=== PATIENT | female | born 2000 | race Caucasian/White ===

== ENCOUNTER 2022-04-25 03:16 | Outpatient (CLI) | payer OTHER ==
[~2022-04-25] VITALS: Ht 180.3 cm; Wt 166.8 kg
[2022-04-25] MEDS ORDERED: PRENTAB9 PO (03:29)
[2022-04-25] MEDS ORDERED: ECOT81TA5 PO (03:30)
[2022-04-25 03:47] VITALS: BP 126/55
[2022-04-25 04:18] LABS: APPEARANCE, URINE MANUAL CLEAR (CLEAR); COLOR, URINE MANUAL YELLOW (YELLOW)
[2022-04-25 04:19] LABS: BILIRUBIN, URINE MANUAL NEGATIVE (NEGATIVE); BLOOD URINE MANUAL NEGATIVE (NEGATIVE); GLUCOSE, URINE (UA) MANUAL NEGATIVE (NEGATIVE); KETONE, URINE MANUAL NEGATIVE (NEGATIVE); LEUKOCYTE ESTERASE, URINE MAN NEGATIVE (NEGATIVE); NITRITE, URINE MANUAL NEGATIVE (NEGATIVE); PROTEIN, URINE MANUAL NEGATIVE (NEGATIVE); UROBILINOGEN, URINE MANUAL NORMAL (NORMAL)
== END 2022-04-25 06:36 | disposition home or self-care (01) ==
LOC: M LDO 03:16
PROVIDERS: ATTEND Obstetrics & Gynecology
DX: O26.893 Other specified pregnancy related conditions, third trimester (principal); M54.9 Dorsalgia, unspecified; Z3A.28 28 weeks gestation of pregnancy; O99.213 Obesity complicating pregnancy, third trimester
CPT/HCPCS: 59025; 76815; 76819; 76820; 81002; G0378; G0463

== ENCOUNTER 2022-07-12 10:17 | Outpatient (CLI) | payer OTHER ==
[2022-07-12] VITALS (7 sets, daily range): BP systolic 132–183; BP diastolic 84–92
[~2022-07-12] VITALS: Ht 177.8 cm; Wt 170.5 kg
[~2022-07-12 10:17] MED LIST: ECOT81TA5 PO; PRENTAB9 PO
[2022-07-12] MEDS ORDERED: HOME MED LIST COMPLETE! XX SCH (10:45)
[2022-07-12] MEDS ORDERED: ACET-897 PO (10:45)
[2022-07-12 11:56] LABS: BASO % 0.1 % (0.0-1.0); EOS # 0.1 10^3/uL (0.0-0.5); EOS % 0.7 % (0.0-3.0); HEMATOCRIT 33.8 % (36.0-47.0); HEMOGLOBIN 11.2 g/dl (12.0-15.5); LYMPH # 1.5 10^3/uL (1.5-5.0); LYMPH % 19.8 % (24.0-44.0); MEAN CORPUSCULAR HEMOGLOBIN 28.5 pg (27.0-33.0); MEAN CORPUSCULAR HGB CONC 33.1 g/dl (32.0-36.5); MONO # 0.6 10^3/uL (0.0-0.8); MONO % 7.9 % (2.0-8.0); NEUTROPHILS # 5.2 10^3/uL (1.5-8.5); NEUTROPHILS % 71.1 % (36.0-66.0); PLATELET COUNT, AUTOMATED 260 10^3/uL (150-450); RED BLOOD COUNT 3.93 10^6/uL (4.00-5.40); WHITE BLOOD COUNT 7.3 10^3/uL (4.0-10.0)
[2022-07-12 11:57] LABS: TOTAL PROTEIN,RANDOM URINE 42.9 MG/DL (0.0-14.0)
[2022-07-12 12:11] LABS: URIC ACID 6.3 MG/DL (3.1-7.8)
[2022-07-12 12:13] LABS: LDH LACTATE DEHYDROGENASE 202 U/L (120-246)
[2022-07-12 12:14] LABS: ALT/SGPT 15 U/L (7.0-40); AST/SGOT 15 U/L (<34); BILIRUBIN,TOTAL 0.6 MG/DL (0.3-1.2); CREATININE FOR GFR 0.52 MG/DL (0.55-1.30); GLOMERULAR FILTRATION RATE > 60.0 (>60)
[2022-07-12 12:25] LABS: CREATININE,RANDOM URINE 386.4 MG/DL
== END 2022-07-12 13:45 | disposition home or self-care (01) ==
LOC: M LDO 10:17
PROVIDERS: ATTEND Advanced Practice Midwife
DX: O26.893 Other specified pregnancy related conditions, third trimester (principal); R03.0 Elevated blood-pressure reading, without diagnosis of hypertension; Z3A.39 39 weeks gestation of pregnancy
CPT/HCPCS: 36415; 59025; 82247; 82565; 82570; 83615; 84156; 84450; 84460; 84550; 85025; G0378; G0463

== ENCOUNTER 2022-07-13 10:22 | Inpatient (IN) | payer OTHER ==
[2022-07-13] VITALS (8 sets, daily range): BP systolic 135–173; BP diastolic 68–90
[~2022-07-13] VITALS: Ht 180.3 cm; Wt 171.1 kg
[~2022-07-13 10:22] MED LIST changes: +ACET-897 PO
[2022-07-13] MEDS ORDERED: HOME MED LIST COMPLETE! XX SCH (11:05)
[2022-07-13] MEDS ORDERED: LACTATED RINGER'S 1000 ML IV STA (11:07)
[2022-07-13] MEDS ORDERED: PENICILLIN G POTASSIUM 5 MU IV 5 MU in D5W MINI-BAG PLUS 100 ML IV STA (11:07)
[2022-07-13] MEDS ORDERED: OXYTOCIN DRIP 30 UNITS in IV 1 EA IV PRN ×4 (11:10)
[2022-07-13] MEDS ORDERED: TRANEXAMIC ACID INJection 1,000 MG in NS 100 ML IV PRN (11:10)
[2022-07-13] MEDS ORDERED: LIDOCAINE 1% MDV 20ML VIAL INFIL PRN (11:10)
[2022-07-13] MEDS ORDERED: CARBOPROST TROMETHAMINE 250 MCG/ML AMP IM PRN (11:10)
[2022-07-13 12:58] LABS: HEMATOCRIT 33.1 % (36.0-47.0); MEAN CORPUSCULAR HEMOGLOBIN 28.6 pg (27.0-33.0); MEAN CORPUSCULAR HGB CONC 33.2 g/dl (32.0-36.5); MEAN CORPUSCULAR VOLUME 86.2 fl (80.0-96.0); PLATELET COUNT, AUTOMATED 246 10^3/uL (150-450); RED BLOOD COUNT 3.84 10^6/uL (4.00-5.40); WHITE BLOOD COUNT 9.4 10^3/uL (4.0-10.0)
[2022-07-13] MEDS ORDERED: OXYTOCIN DRIP 30 UNITS in IV 1 EA IV SCH (13:10)
[2022-07-13 13:11] LABS: URIC ACID 6.7 MG/DL (3.1-7.8)
[2022-07-13 13:12] LABS: TOTAL PROTEIN,RANDOM URINE 33.9 MG/DL (0.0-14.0)
[2022-07-13 13:14] LABS: ALT/SGPT 15 U/L (7.0-40); AST/SGOT 13 U/L (<34); BILIRUBIN,TOTAL 0.6 MG/DL (0.3-1.2); CREATININE FOR GFR 0.53 MG/DL (0.55-1.30); GLOMERULAR FILTRATION RATE > 60.0 (>60)
[2022-07-13 13:17] LABS: LDH LACTATE DEHYDROGENASE 194 U/L (120-246)
[2022-07-13 13:40] LABS: CREATININE,RANDOM URINE 347.8 MG/DL
[2022-07-13] MEDS: LR 1,000 ML IV SCH (14:36)
[2022-07-13] MEDS ORDERED: PEN G POT 3,000,000 UNIT/50 ML 3,000,000 UNIT in IV 1 EA IV SCH (18:00)
[2022-07-13] MEDS: FAMOTIDINE 20 MG TAB PO SCH (19:11)
[2022-07-13 19:59] LABS: HEMATOCRIT 32.8 % (36.0-47.0); HEMOGLOBIN 10.9 g/dl (12.0-15.5); MEAN CORPUSCULAR HEMOGLOBIN 28.6 pg (27.0-33.0); MEAN CORPUSCULAR HGB CONC 33.2 g/dl (32.0-36.5); MEAN CORPUSCULAR VOLUME 86.1 fl (80.0-96.0); PLATELET COUNT, AUTOMATED 241 10^3/uL (150-450); RED BLOOD COUNT 3.81 10^6/uL (4.00-5.40); WHITE BLOOD COUNT 9.7 10^3/uL (4.0-10.0)
[2022-07-13] MEDS ORDERED: **PENDING PCN ENTRY XX SCH (21:00)
[2022-07-13] MEDS ORDERED: LABETALOL 100MG/20ML VIAL IV STA (21:45)
[2022-07-14] VITALS (14 sets, daily range): BP systolic 119–185; BP diastolic 60–102
[2022-07-14] MEDS: LR 1,000 ML IV SCH ×3 (00:04→11:10)
[2022-07-14] MEDS: PEN G POT 3,000,000 UNIT/50 ML 3,000,000 UNIT in IV 1 EA IV SCH ×4 (00:04→12:00)
[2022-07-14] MEDS ORDERED: NALOXONE INJ 0.4MG/1ML VIAL IV PRN (01:30)
[2022-07-14] MEDS ORDERED: diphenhydrAMINE 50MG/ML VIAL IV PRN (01:30)
[2022-07-14] MEDS ORDERED: EPIDURAL/PCA KEYS XX PRN (01:30)
[2022-07-14] MEDS ORDERED: ePHEDrine SULFATE 25 MG/5 ML(5MG/ML) SYRINGE IVP PRN (01:30)
[2022-07-14] MEDS ORDERED: LR 500 ML IV PRN (01:30)
[2022-07-14] MEDS ORDERED: ONDANSETRON 4MG 2ML VIAL IV PRN (01:30)
[2022-07-14] MEDS: FENTANYL/ROPIVACAINE/NACL BAG 100 ML EPIDURAL SCH ×2 (02:05→11:30)
[2022-07-14] MEDS: FAMOTIDINE 20 MG TAB PO SCH ×2 (08:05→21:17)
[2022-07-14] MEDS: PRENATAL VITAMINS CHEWABLE TABLET PO SCH (09:00)
[2022-07-14] MEDS ORDERED: IBUPROFEN 800 MG TAB PO PRN (11:10)
[2022-07-14] MEDS ORDERED: DIBUCAINE 1% OINTMENT 30GM TOP PRN (11:10)
[2022-07-14] MEDS ORDERED: DOCUSATE SODIUM 100MG CAPSULE PO PRN (11:10)
[2022-07-14] MEDS ORDERED: RHOGAM 300 MCG (1500 IU) INJ (J2790) IM SCH (11:10)
[2022-07-14] MEDS: ACETAMINOPHEN TAB 650MG DOSE (2X325MG) PO PRN (21:17)
[2022-07-15 06:00] VITALS: BP 139/95
[2022-07-15] MEDS: FAMOTIDINE 20 MG TAB PO SCH ×2 (08:25→20:04)
[2022-07-15] MEDS: PRENATAL VITAMINS CHEWABLE TABLET PO SCH (08:25)
[2022-07-15] MEDS: ACETAMINOPHEN TAB 650MG DOSE (2X325MG) PO PRN ×2 (08:26→20:04)
[2022-07-16] MEDS: ACETAMINOPHEN TAB 650MG DOSE (2X325MG) PO PRN ×2 (01:54→09:09)
[2022-07-16 06:00] VITALS: BP 135/82
[2022-07-16] MEDS ORDERED: MEASLES,MUMPS,RUBELLA VACCINE INJ (MMR-II) (90707) SC.IMMUN ONE (09:00)
[2022-07-16] MEDS: PRENATAL VITAMINS CHEWABLE TABLET PO SCH (09:08)
[2022-07-16] MEDS: FAMOTIDINE 20 MG TAB PO SCH (09:08)
[2022-07-16] MEDS ORDERED: ACET1TAB55 PO (11:03)
[2022-07-16] MEDS ORDERED: IBUP80TA PO (11:03)
[2022-07-16] MEDS ORDERED: COLA100C5 PO (11:03)
== END 2022-07-16 20:44 | disposition home or self-care (01) | DRG 806 ==
LOC: M LDI 10:22 → M OBS 07-14 13:00
PROVIDERS: ADMIT Advanced Practice Midwife; ATTEND Internal Medicine
PROC: 3E033VJ Introduction of Other Hormone into Peripheral Vein, Percutaneous Approach (ICD-10-PCS; 2022-07-13)
PROC: 10E0XZZ Delivery of Products of Conception, External Approach (ICD-10-PCS; principal; 2022-07-14)
PROC: 0KQM0ZZ Repair Perineum Muscle, Open Approach (ICD-10-PCS; 2022-07-14)
DX: O13.4 Gestational [pregnancy-induced] hypertension without significant proteinuria, complicating childbirth (principal); Z37.0 Single live birth; Z68.43 Body mass index [BMI] 50.0-59.9, adult; Z3A.39 39 weeks gestation of pregnancy; O99.824 Streptococcus B carrier state complicating childbirth; O99.214 Obesity complicating childbirth; E66.9 Obesity, unspecified; O76 Abnormality in fetal heart rate and rhythm complicating labor and delivery; O70.1 Second degree perineal laceration during delivery

== ENCOUNTER 2023-06-18 17:01 | Observation (INO) | payer OTHER ==
[~2023-06-18] VITALS: Ht 180.3 cm; Wt 172.9 kg
[~2023-06-18 17:01] MED LIST changes: +ACET1TAB55 PO; +COLA100C5 PO; +IBUP80TA PO
[2023-06-18 17:43] LABS: BASO % 0.1 % (0.0-1.0); EOS % 0.3 % (0.0-3.0); HEMATOCRIT 39.4 % (36.0-47.0); HEMOGLOBIN 13.3 g/dl (12.0-15.5); LYMPH # 1.2 10^3/uL (1.5-5.0); LYMPH % 15.9 % (24.0-44.0); MEAN CORPUSCULAR HEMOGLOBIN 28.8 pg (27.0-33.0); MEAN CORPUSCULAR HGB CONC 33.8 g/dl (32.0-36.5); MEAN CORPUSCULAR VOLUME 85.3 fl (80.0-96.0); MONO # 0.5 10^3/uL (0.0-0.8); MONO % 6.2 % (2.0-8.0); NEUTROPHILS # 5.7 10^3/uL (1.5-8.5); NEUTROPHILS % 77.2 % (36.0-66.0); PLATELET COUNT, AUTOMATED 325 10^3/uL (150-450); RED BLOOD COUNT 4.62 10^6/uL (4.00-5.40); WHITE BLOOD COUNT 7.3 10^3/uL (4.0-10.0)
[2023-06-18 17:56] LABS: LIPASE 28 U/L (12-53)
[2023-06-18 17:57] LABS: AMYLASE 24 U/L (30-118)
[2023-06-18 17:58] LABS: ALBUMIN 3.9 G/DL (3.2-5.2); ALKALINE PHOSPHATASE 113 U/L (46-116); ALT/SGPT 269 U/L (7.0-40); AST/SGOT 393 U/L (<34); BILIRUBIN,DIRECT 0.8 MG/DL (<0.4); BILIRUBIN,TOTAL 1.5 MG/DL (0.3-1.2); BLOOD UREA NITROGEN 16 MG/DL (9-23); CALCIUM LEVEL 9.3 MG/DL (8.5-10.1); CARBON DIOXIDE LEVEL 26 MMOL/L (20-31); CHLORIDE LEVEL 101 MMOL/L (98-107); CK-MB VALUE MASS < 1.0 NG/ML (<3.6); CPK CREATINE PHOSPHOKINASE 72 U/L (34-145); CREATININE FOR GFR 0.63 MG/DL (0.55-1.30); GLOMERULAR FILTRATION RATE > 60.0 (>60); GLUCOSE, FASTING 105 MG/DL (60-100); MB/CK RELATIVE INDEX 1.38 (< OR =4); SODIUM LEVEL 137 MMOL/L (136-145)
[2023-06-18 18:05] LABS: HCG, SERUM QUALITATIVE NEGATIVE (NEGATIVE)
[2023-06-18] MEDS ORDERED: ONDANSETRON 4MG 2ML VIAL IV ONE (19:55)
[2023-06-18] MEDS ORDERED: KETOROLAC 30 MG/ML 1ML VIAL IV ONE (19:55)
[2023-06-18] MEDS ORDERED: NS 1,000 ML IV ONE (19:55)
[2023-06-18] MEDS ORDERED: ISOVUE-370 76% 100ML VIAL As Ordered ONE (21:53)
[2023-06-19] MEDS ORDERED: MORPHINE 2 MG/ML 1ML VIAL IV PRN (00:45)
[2023-06-19] MEDS ORDERED: ONDANSETRON 4MG 2ML VIAL IV PRN (00:45)
[2023-06-19] MEDS ORDERED: LR 1,000 ML IV SCH (00:45)
[2023-06-19] MEDS ORDERED: MORPHINE 4 MG/ML 1ML VIAL IV PRN (00:45)
[2023-06-19 00:48] LABS: RSV AMPLIFICATION NEGATIVE (NEGATIVE)
[2023-06-19 02:02] VITALS: BP 125/75; TEMP 96.8; O2SAT 96
[2023-06-19 06:17] VITALS: BP 120/77; TEMP 97; O2SAT 99
[2023-06-19 06:57] LABS: ALBUMIN 3.5 G/DL (3.2-5.2); ALKALINE PHOSPHATASE 115 U/L (46-116); ALT/SGPT 506 U/L (7.0-40); AST/SGOT 440 U/L (<34); BILIRUBIN,TOTAL 1.7 MG/DL (0.3-1.2); BLOOD UREA NITROGEN 13 MG/DL (9-23); CALCIUM LEVEL 8.7 MG/DL (8.5-10.1); CARBON DIOXIDE LEVEL 26 MMOL/L (20-31); CHLORIDE LEVEL 103 MMOL/L (98-107); CREATININE FOR GFR 0.61 MG/DL (0.55-1.30); GLOMERULAR FILTRATION RATE > 60.0 (>60); GLUCOSE, FASTING 86 MG/DL (60-100); POTASSIUM SERUM 3.7 MMOL/L (3.5-5.1); SODIUM LEVEL 138 MMOL/L (136-145); TOTAL PROTEIN 6.3 G/DL (5.7-8.2)
== END 2023-06-19 14:05 | disposition home or self-care (01) ==
LOC: M ED 17:01 → M ED INP 17:02 → M MS5PR 06-19 02:12
PROVIDERS: ADMIT Internal Medicine; ATTEND Internal Medicine Nephrology
DX: K80.50 Calculus of bile duct without cholangitis or cholecystitis without obstruction (principal); F17.200 Nicotine dependence, unspecified, uncomplicated
CPT/HCPCS: 36415; 74021; 74177; 74181; 76705; 80048; 80053; 80076; 82150; 82550; 82553; 83605; 83690; 84484; 84703; 85025; 87631; 96361; 96374; 96375; 99284; J1885; J2405; Q9967

== ENCOUNTER 2023-06-19 23:24 | Inpatient (IN) | payer OTHER ==
[~2023-06-19] VITALS: Ht 175.3 cm; Wt 165.5 kg
[2023-06-20] MEDS ORDERED: KETOROLAC 30 MG/ML 1ML VIAL IV ONE (00:50)
[2023-06-20] MEDS ORDERED: ONDANSETRON 4MG 2ML VIAL IV ONE (00:50)
[2023-06-20] MEDS ORDERED: NS 1,000 ML IV ONE (00:50)
[2023-06-20 01:27] LABS: BASO % 0.3 % (0.0-1.0); EOS # 0.1 10^3/uL (0.0-0.5); EOS % 0.8 % (0.0-3.0); HEMATOCRIT 36.9 % (36.0-47.0); HEMOGLOBIN 12.5 g/dl (12.0-15.5); LYMPH # 1.5 10^3/uL (1.5-5.0); LYMPH % 20.2 % (24.0-44.0); MEAN CORPUSCULAR HEMOGLOBIN 29.5 pg (27.0-33.0); MEAN CORPUSCULAR HGB CONC 33.9 g/dl (32.0-36.5); MONO # 0.5 10^3/uL (0.0-0.8); MONO % 6.6 % (2.0-8.0); NEUTROPHILS # 5.3 10^3/uL (1.5-8.5); PLATELET COUNT, AUTOMATED 302 10^3/uL (150-450); RED BLOOD COUNT 4.24 10^6/uL (4.00-5.40); WHITE BLOOD COUNT 7.4 10^3/uL (4.0-10.0)
[2023-06-20 01:37] LABS: LIPASE 23 U/L (12-53)
[2023-06-20 01:40] LABS: HCG, SERUM QUALITATIVE NEGATIVE (NEGATIVE)
[2023-06-20 01:42] LABS: ALBUMIN 3.7 G/DL (3.2-5.2); ALKALINE PHOSPHATASE 132 U/L (46-116); ALT/SGPT 460 U/L (7.0-40); AST/SGOT 263 U/L (<34); BILIRUBIN,DIRECT 1.9 MG/DL (<0.4); BILIRUBIN,TOTAL 2.9 MG/DL (0.3-1.2); BLOOD UREA NITROGEN 11 MG/DL (9-23); CALCIUM LEVEL 8.8 MG/DL (8.5-10.1); CARBON DIOXIDE LEVEL 28 MMOL/L (20-31); CHLORIDE LEVEL 105 MMOL/L (98-107); CREATININE FOR GFR 0.71 MG/DL (0.55-1.30); GLOMERULAR FILTRATION RATE > 60.0 (>60); GLUCOSE, FASTING 89 MG/DL (60-100); POTASSIUM SERUM 3.6 MMOL/L (3.5-5.1); SODIUM LEVEL 141 MMOL/L (136-145); TOTAL PROTEIN 6.7 G/DL (5.7-8.2)
[2023-06-20 02:39] LABS: RSV AMPLIFICATION NEGATIVE (NEGATIVE)
[2023-06-20 09:40] LABS: BASO % 0.2 % (0.0-1.0); EOS # 0.1 10^3/uL (0.0-0.5); EOS % 1.8 % (0.0-3.0); HEMATOCRIT 37.6 % (36.0-47.0); HEMOGLOBIN 12.7 g/dl (12.0-15.5); LYMPH # 1.3 10^3/uL (1.5-5.0); LYMPH % 29.4 % (24.0-44.0); MEAN CORPUSCULAR HEMOGLOBIN 28.7 pg (27.0-33.0); MEAN CORPUSCULAR HGB CONC 33.8 g/dl (32.0-36.5); MEAN CORPUSCULAR VOLUME 85.1 fl (80.0-96.0); MONO # 0.4 10^3/uL (0.0-0.8); NEUTROPHILS # 2.7 10^3/uL (1.5-8.5); NEUTROPHILS % 59.4 % (36.0-66.0); PLATELET COUNT, AUTOMATED 287 10^3/uL (150-450); RED BLOOD COUNT 4.42 10^6/uL (4.00-5.40); WHITE BLOOD COUNT 4.5 10^3/uL (4.0-10.0)
[2023-06-20 10:05] LABS: ALBUMIN 3.7 G/DL (3.2-5.2); BILIRUBIN,DIRECT 0.7 MG/DL (<0.4); BILIRUBIN,TOTAL 1.6 MG/DL (0.3-1.2); TOTAL PROTEIN 6.9 G/DL (5.7-8.2)
[2023-06-20] MEDS ORDERED: MED REC IN PROGRESS XX SCH (13:20)
[2023-06-20] MEDS ORDERED: HOME MED LIST COMPLETE! XX SCH (14:10)
[2023-06-20] MEDS ORDERED: MOM 30ML SUSPENSION UDC PO PRN (14:30)
[2023-06-20] MEDS ORDERED: ACETAMINOPHEN TAB 650MG DOSE (2X325MG) PO PRN (14:30)
[2023-06-20] MEDS ORDERED: KETOROLAC 30 MG/ML 1ML VIAL IV PRN (14:45)
[2023-06-20 16:25] LABS: INR 1.1; PROTHROMBIN TIME 13.9 SECONDS (12.5-14.5)
[2023-06-20 17:10] VITALS: BP 146/76; TEMP 97.7; O2SAT 98
[2023-06-20] MEDS: HYDROMORPHONE HCL 0.5 MG/ 0.5 ML SYRINGE IV PRN (19:26)
[2023-06-20] MEDS: DOCUSATE SODIUM 100MG CAPSULE PO SCH (19:26)
[2023-06-20 22:00] VITALS: BP 135/70; TEMP 97.7; O2SAT 100
[2023-06-20] MEDS ORDERED: ONDANSETRON 4MG 2ML VIAL IV PRN (22:35)
[2023-06-20] MEDS: LR 1,000 ML IV SCH (22:42)
[2023-06-20] MEDS: KETOROLAC 30 MG/ML 1ML VIAL IV PRN (23:56)
[2023-06-21] VITALS (8 sets, daily range): BP systolic 121–152; BP diastolic 62–97; TEMP 97.2–97.5; O2SAT 95–99
[2023-06-21] MEDS: HYDROMORPHONE HCL 0.5 MG/ 0.5 ML SYRINGE IV PRN ×6 (00:36→23:14)
[2023-06-21 05:38] LABS: HEMATOCRIT 34.4 % (36.0-47.0); HEMOGLOBIN 11.7 g/dl (12.0-15.5); MEAN CORPUSCULAR HEMOGLOBIN 29.1 pg (27.0-33.0); MEAN CORPUSCULAR VOLUME 85.6 fl (80.0-96.0); PLATELET COUNT, AUTOMATED 257 10^3/uL (150-450); RED BLOOD COUNT 4.02 10^6/uL (4.00-5.40)
[2023-06-21 06:24] LABS: ALBUMIN 3.3 G/DL (3.2-5.2); ALKALINE PHOSPHATASE 142 U/L (46-116); ALT/SGPT 454 U/L (7.0-40); AST/SGOT 309 U/L (<34); BILIRUBIN,TOTAL 2.5 MG/DL (0.3-1.2); BLOOD UREA NITROGEN 10 MG/DL (9-23); CALCIUM LEVEL 8.6 MG/DL (8.5-10.1); CARBON DIOXIDE LEVEL 26 MMOL/L (20-31); CHLORIDE LEVEL 106 MMOL/L (98-107); CREATININE FOR GFR 0.65 MG/DL (0.55-1.30); GLOMERULAR FILTRATION RATE > 60.0 (>60); GLUCOSE, FASTING 91 MG/DL (60-100); POTASSIUM SERUM 3.8 MMOL/L (3.5-5.1); SODIUM LEVEL 140 MMOL/L (136-145); TOTAL PROTEIN 6.1 G/DL (5.7-8.2)
[2023-06-21] MEDS: DOCUSATE SODIUM 100MG CAPSULE PO SCH ×2 (07:55→21:56)
[2023-06-21] MEDS ORDERED: ENOXAPARIN 40MG/0.4ML SYRINGE (J1650 PER 10MG) SC ONE (09:00)
[2023-06-21] MEDS: LR 1,000 ML IV SCH ×3 (11:00→19:46)
[2023-06-21] MEDS ORDERED: SODIUM CHLORIDE 0.9% INJ 10 ML SYR IV ONE (13:25)
[2023-06-21] MEDS ORDERED: ceFAZolin SOD 3 GM in IV 1 EA IV ONE (13:25)
[2023-06-21] MEDS ORDERED: INDOCYANINE GREEN 25MG VIAL (IC-GREEN) IV ONE (13:25)
[2023-06-21] MEDS ORDERED: INDOCYANINE GREEN 25MG VIAL (IC-GREEN) As Ordered ONE (13:56)
[2023-06-21] MEDS ORDERED: fentaNYL 250 MCG/5 ML INJECTION As Ordered ONE (13:59)
[2023-06-21] MEDS ORDERED: propofoL 200 MG/20 ML VIAL As Ordered ONE (13:59)
[2023-06-21] MEDS ORDERED: ROCURONIUM BROMIDE 50MG/5ML VIAL As Ordered ONE (13:59)
[2023-06-21] MEDS ORDERED: ceFAZolin SOD 1 GM in D5W MINI-BAG PLUS 50 ML IV ONE (14:00)
[2023-06-21] MEDS ORDERED: ceFAZolin SOD 2 GM in IV 1 EA IV ONE (14:00)
[2023-06-21] MEDS ORDERED: LIDOCAINE 2% 100MG/5ML SDV (FOR ANES.) As Ordered ONE (14:04)
[2023-06-21] MEDS ORDERED: MIDAZOLAM INJ 2MG/2ML VIAL As Ordered ONE (14:06)
[2023-06-21] MEDS ORDERED: ONDANSETRON 4MG 2ML VIAL As Ordered ONE (14:11)
[2023-06-21] MEDS ORDERED: KETOROLAC 60MG 2ML VIAL As Ordered ONE (14:12)
[2023-06-21] MEDS ORDERED: ceFAZolin 1GM VIAL As Ordered ONE (15:07)
[2023-06-21] MEDS ORDERED: ACETAMINOPHEN 1000MG 100ML IV BAG As Ordered ONE (15:24)
[2023-06-21] MEDS ORDERED: SUGAMMADEX SODIUM 500 MG/5 ML VIAL (BRIDION) As Ordered ONE (16:06)
[2023-06-21] MEDS ORDERED: oxyCODONE 5MG TAB PO PRN (16:35)
[2023-06-21] MEDS ORDERED: LR 1,000 ML IV SCH (16:35)
[2023-06-21] MEDS ORDERED: ONDANSETRON 4MG 2ML VIAL IV PRN (16:35)
[2023-06-21] MEDS ORDERED: fentaNYL 100 MCG/2 ML INJECTION IV PRN (16:35)
[2023-06-21] MEDS ORDERED: METOCLOPRAMIDE INJ 10MG/2ML VIAL IV STA (16:36)
[2023-06-21] MEDS ORDERED: dexmedeTOMIDine (4MCG/ML)200MCG/50ML BTL (PRECEDEX) As Ordered ONE (16:39)
[2023-06-21] MEDS ORDERED: SCOPOLAMINE 1MG TRANSDERMAL PATCH TOP SCH (21:00)
[2023-06-21] MEDS: KETOROLAC 30 MG/ML 1ML VIAL IV PRN (21:56)
[2023-06-22 02:04] VITALS: BP 142/78; TEMP 97.3; O2SAT 98
[2023-06-22] MEDS: KETOROLAC 30 MG/ML 1ML VIAL IV PRN (04:37)
[2023-06-22 05:05] VITALS: BP 144/78; TEMP 97.5; O2SAT 97
[2023-06-22 06:03] LABS: HEMATOCRIT 35.5 % (36.0-47.0); HEMOGLOBIN 11.8 g/dl (12.0-15.5); MEAN CORPUSCULAR HEMOGLOBIN 28.7 pg (27.0-33.0); MEAN CORPUSCULAR HGB CONC 33.2 g/dl (32.0-36.5); MEAN CORPUSCULAR VOLUME 86.4 fl (80.0-96.0); PLATELET COUNT, AUTOMATED 274 10^3/uL (150-450); RED BLOOD COUNT 4.11 10^6/uL (4.00-5.40); WHITE BLOOD COUNT 6.4 10^3/uL (4.0-10.0)
[2023-06-22 06:22] LABS: ALBUMIN 3.4 G/DL (3.2-5.2); ALKALINE PHOSPHATASE 154 U/L (46-116); ALT/SGPT 489 U/L (7.0-40); AST/SGOT 263 U/L (<34); BILIRUBIN,DIRECT 1.6 MG/DL (<0.4); BILIRUBIN,TOTAL 2.2 MG/DL (0.3-1.2); BLOOD UREA NITROGEN 8 MG/DL (9-23); CALCIUM LEVEL 8.7 MG/DL (8.5-10.1); CARBON DIOXIDE LEVEL 26 MMOL/L (20-31); CHLORIDE LEVEL 105 MMOL/L (98-107); CREATININE FOR GFR 0.62 MG/DL (0.55-1.30); GLOMERULAR FILTRATION RATE > 60.0 (>60); GLUCOSE, FASTING 90 MG/DL (60-100); POTASSIUM SERUM 3.9 MMOL/L (3.5-5.1); SODIUM LEVEL 141 MMOL/L (136-145); TOTAL PROTEIN 6.2 G/DL (5.7-8.2)
[2023-06-22] MEDS: DOCUSATE SODIUM 100MG CAPSULE PO SCH ×2 (07:57→19:24)
[2023-06-22] MEDS: HYDROMORPHONE HCL 0.5 MG/ 0.5 ML SYRINGE IV PRN ×4 (07:58→21:33)
[2023-06-22] MEDS: ENOXAPARIN 60MG/0.6ML SYRINGE (J1650 PER 10MG) SC SCH ×2 (07:58→19:23)
[2023-06-22 08:43] LABS: HEPATITIS C VIRUS ABY INDEX 0.04 INDEX (<0.8)
[2023-06-22 08:44] LABS: HEPATITIS B CORE ANTIBODY IGM NEGATIVE (NEGATIVE)
[2023-06-22 13:37] LABS: ALBUMIN 3.7 G/DL (3.2-5.2); ALKALINE PHOSPHATASE 170 U/L (46-116); ALT/SGPT 525 U/L (7.0-40); AST/SGOT 287 U/L (<34); BILIRUBIN,TOTAL 2.4 MG/DL (0.3-1.2); BLOOD UREA NITROGEN 10 MG/DL (9-23); CALCIUM LEVEL 9.1 MG/DL (8.5-10.1); CARBON DIOXIDE LEVEL 28 MMOL/L (20-31); CHLORIDE LEVEL 103 MMOL/L (98-107); CREATININE FOR GFR 0.64 MG/DL (0.55-1.30); GLOMERULAR FILTRATION RATE > 60.0 (>60); GLUCOSE, FASTING 96 MG/DL (60-100); POTASSIUM SERUM 3.8 MMOL/L (3.5-5.1); SODIUM LEVEL 139 MMOL/L (136-145); TOTAL PROTEIN 6.9 G/DL (5.7-8.2)
[2023-06-22 14:00] VITALS: BP 116/54; TEMP 97; O2SAT 98
[2023-06-22 21:00] VITALS: BP 122/60; TEMP 97.5; O2SAT 97
[2023-06-22] MEDS ORDERED: CHLORASEPTIC SPRAY MT PRN (21:10)
[2023-06-23] MEDS: HYDROMORPHONE HCL 0.5 MG/ 0.5 ML SYRINGE IV PRN ×4 (00:39→12:42)
[2023-06-23 06:02] VITALS: BP 127/74; TEMP 97.7; O2SAT 98
[2023-06-23 06:07] LABS: HEMATOCRIT 34.3 % (36.0-47.0); HEMOGLOBIN 11.5 g/dl (12.0-15.5); MEAN CORPUSCULAR HEMOGLOBIN 29.3 pg (27.0-33.0); MEAN CORPUSCULAR HGB CONC 33.5 g/dl (32.0-36.5); MEAN CORPUSCULAR VOLUME 87.3 fl (80.0-96.0); PLATELET COUNT, AUTOMATED 263 10^3/uL (150-450); RED BLOOD COUNT 3.93 10^6/uL (4.00-5.40); WHITE BLOOD COUNT 4.6 10^3/uL (4.0-10.0)
[2023-06-23 06:31] LABS: ALBUMIN 3.3 G/DL (3.2-5.2); ALKALINE PHOSPHATASE 154 U/L (46-116); ALT/SGPT 470 U/L (7.0-40); AST/SGOT 189 U/L (<34); BILIRUBIN,DIRECT 1.2 MG/DL (<0.4); BILIRUBIN,TOTAL 1.8 MG/DL (0.3-1.2); BLOOD UREA NITROGEN 9 MG/DL (9-23); CALCIUM LEVEL 8.5 MG/DL (8.5-10.1); CARBON DIOXIDE LEVEL 29 MMOL/L (20-31); CHLORIDE LEVEL 103 MMOL/L (98-107); CREATININE FOR GFR 0.74 MG/DL (0.55-1.30); GLOMERULAR FILTRATION RATE > 60.0 (>60); GLUCOSE, FASTING 90 MG/DL (60-100); POTASSIUM SERUM 3.6 MMOL/L (3.5-5.1); SODIUM LEVEL 141 MMOL/L (136-145); TOTAL PROTEIN 6.1 G/DL (5.7-8.2)
[2023-06-23] MEDS: DOCUSATE SODIUM 100MG CAPSULE PO SCH (08:02)
[2023-06-23] MEDS: ENOXAPARIN 60MG/0.6ML SYRINGE (J1650 PER 10MG) SC SCH (08:03)
[2023-06-23] MEDS ORDERED: OXYC1TAB23 PO (10:26)
[2023-06-23] MEDS ORDERED: SIME180C25 PO (10:26)
[2023-06-23] MEDS ORDERED: ACET-683 PO (10:26)
[2023-06-23] MEDS ORDERED: IBUP-1022 PO (10:26)
[2023-06-23] MEDS: SIMETHICONE 80MG CHEW TAB PO SCH ×2 (11:09→13:00)
== END 2023-06-23 14:46 | disposition home or self-care (01) | DRG 419 ==
LOC: M ED 23:24 → M ED INP 06-20 14:26 → ENRESERV 06-20 15:57 → M MSPAV 06-20 17:11
PROVIDERS: ADMIT Student in an Organized Health Care Education/Training Program; ATTEND Student in an Organized Health Care Education/Training Program
PROC: 8E0W4CZ Robotic Assisted Procedure of Trunk Region, Percutaneous Endoscopic Approach (ICD-10-PCS; 2023-06-21)
PROC: 0FT44ZZ Resection of Gallbladder, Percutaneous Endoscopic Approach (ICD-10-PCS; principal; 2023-06-21 10:00)
DX: K80.80 Other cholelithiasis without obstruction (principal); K76.0 Fatty (change of) liver, not elsewhere classified; E66.9 Obesity, unspecified; F17.290 Nicotine dependence, other tobacco product, uncomplicated